=== PATIENT | female | born 1985 | race Caucasian/White ===

== ENCOUNTER 2018-06-06 08:00 | Inpatient (IN) | payer OTHER ==
[2018-06-07] MEDS ORDERED: Sodium Chloride 0.9% 10 ML SDV IV PRN (05:47)
[2018-06-07] MEDS ORDERED: Sodium Chloride 0.9% 2.5 ML Syringe FLUSH PRN (05:47)
[2018-06-07] MEDS ORDERED: Sodium Chloride 0.9% 10 ML Syringe FLUSH PRN (05:47)
[2018-06-07] MEDS ORDERED: Citric Acid/Sodium Citrate Solution 30 ML Cup PO ONE (05:47)
[2018-06-07] MEDS ORDERED: Oxytocin/0.9 % Sodium Chloride 30 UNIT/500 ML BAG IV SCH (06:00)
[2018-06-07] MEDS ORDERED: Lactated Ringers 1,000 ML IV SCH ×2 (06:00→09:30)
[2018-06-07] MEDS ORDERED: Sodium Chloride 0.9% 20 ML ONE ×2 (07:06→08:42)
[2018-06-07] MEDS ORDERED: Morphine PF 10 MG/10 ML SDV ONE (07:06)
[2018-06-07] MEDS ORDERED: Oxytocin/0.9 % Sodium Chloride 30 UNIT/500 ML BAG ONE (07:06)
[2018-06-07] MEDS ORDERED: ceFAZolin/Dextrose,Iso-Osmotic 2 GM/50 ML Duplex Bag IV ONE (07:06)
[2018-06-07] MEDS ORDERED: Phenylephrine/Normal Saline 100 MCG/ML 10 ML Syringe ONE ×2 (07:06→08:42)
[2018-06-07] MEDS ORDERED: ePHEDrine 50 MG/ML SDV ONE ×2 (07:06→08:42)
--- NOTE | 2018-06-07 07:15 | PCM.PREANE ---
Preanesthetic Assessment - Anesthesia/Transfusion/Family Hx Anesthesia History: Prior Anesthesia Without Reaction Family History of Anesthesia Reaction: No Transfusion History: No Prior Transfusion(s) Intubation History: Unknown - Review of Systems General: No Symptoms Pulmonary: No Symptoms Cardiovascular: No Symptoms Gastrointestinal: No Symptoms Neurological: No Symptoms Other: Reports: None - Physical Assessment Height: 1.63 m Weight: 97.522 kg ASA Class: 2 Mental Status: Alert & Oriented x3 Airway Class: Mallampati = 2 Dentition: Reports: Normal Dentition Thyro-Mental Finger Breadths: 3 Mouth Opening Finger Breadths: 3 ROM/Head Extension: Full Lungs: Clear to Auscultation, Normal Respiratory Effort Cardiovascular: Regular Rate, Regular Rhythm - Lab Values: Laboratory Last Values WBC 10.25 K/uL (4.0-11.0) 06/07/18 06:10 RBC 4.00 M/uL (4.30-5.90) L 06/07/18 06:10 Hgb 12.2 g/dL (12.0-16.0) 06/07/18 06:10 Hct 35.7 % (36.0-46.0) L 06/07/18 06:10 MCV 89.3 fL (80.0-98.0) 06/07/18 06:10 MCH 30.5 pg (27.0-32.0) 06/07/18 06:10 MCHC 34.2 g/dL (31.0-37.0) 06/07/18 06:10 RDW Std Deviation 43.8 fl (28.0-62.0) 06/07/18 06:10 RDW Coeff of William 13 % (11.0-15.0) 06/07/18 06:10 Plt Count 177 K/uL (150-400) 06/07/18 06:10 MPV 9.90 fL (7.40-12.00) 06/07/18 06:10 Nucleated RBC % 0.0 /100WBC 06/07/18 06:10 Nucleated RBCs # 0 K/uL 06/07/18 06:10 Blood Type O POSITIVE 06/07/18 06:03 Antibody Screen NEGATIVE 06/07/18 06:03 - Allergies Allergies/Adverse Reactions: Allergies Allergy/AdvReac Type Severity Reaction Status Date / Time No Known Allergies Allergy Verified 06/02/18 08:12 - Blood Blood Available: No - Anesthesia Plan Pre-Op Medication Ordered: None - Acknowledgements Anesthesia Type Planned: Spinal Pt an Appropriate Candidate for the Planned Anesthesia: Yes Alternatives and Risks of Anesthesia Discussed w Pt/Guardian: Yes Pt/Guardian Understands and Agrees with Anesthesia Plan: Yes PreAnesthesia Questionnaire HEENT History: Reports: None Cardiovascular History: Reports: None Respiratory History: Reports: None Gastrointestinal History: Reports: Other (See Below) Other Gastrointestinal History: difficulty swallowing at times Genitourinary History: Reports: None [employer]ATURE History: Reports: Musculoskeletal History: Reports: None Neurological History: Reports: None Psychiatric History: Reports: None Endocrine/Metabolic History: Reports: Obesity/BMI 30+ Hematologic History: Reports: None Immunologic History: Reports: None Oncologic (Cancer) History: Reports: None Dermatologic History: Reports: None - Infectious Disease History Infectious Disease History: Reports: Chicken Pox - Past Surgical History Head Surgeries/Procedures: Reports: None HEENT Surgical History: Reports: None Cardiovascular Surgical History: Reports: None Respiratory Surgical History: Reports: None GI Surgical History: Reports: None Female Surgical History: Reports: Section Neurological Surgical History: Reports: None Musculoskeletal Surgical History: Reports: None Oncologic Surgical History: Reports: None Dermatological Surgical History: Reports: None - SUBSTANCE USE Smoking Status *Q: Former Smoker Recreational Drug Use History: No - HOME MEDS Home Medications: Home Meds PNV95/Ferrous Fumarate/FA [ Vitamin Tablet] 1 tab PO DAILY 06/02/18 [ History] - CURRENT (IN HOUSE) MEDS Current Meds: Current Medications Lactated Ringer's (Ringers, Lactated) 1,000 mls @ 500 mls/hr IV BOLUS [facility] Oxytocin/Sodium Chloride (Oxytocin 30 Unit/500 Ml-Ns) 30 unit in 500 mls @ 250 mls/hr IV TITRATE [facility] Sodium Chloride (Saline Flush) 10 ml FLUSH ASDIRECTED PRN PRN Reason: Keep Vein Open Sodium Chloride (Saline Flush) 2.5 ml FLUSH ASDIRECTED PRN PRN Reason: Keep Vein Open Sodium Chloride (Normal Saline) 10 ml IV ASDIRECTED PRN PRN Reason: IV Use Discontinued Medications Cefazolin Sodium/Dextrose (Ancef) Confirm Administered Dose 2 gm IV .STK-MED ONE Stop: 06/07/18 07:07 Citric Acid/Sodium Citrate (Bicitra Solution) 30 ml PO ONETIME ONE Stop: 06/07/18 05:48 Ephedrine Sulfate (Ephedrine Sulfate) Confirm Administered Dose 50 mg .ROUTE .[facility]-MED ONE Stop: 06/07/18 07:07 Sodium Chloride (Normal Saline) Confirm Administered Dose 20 mls @ as directed .ROUTE .[facility]-MED ONE Stop: 06/07/18 07:07 Oxytocin/Sodium Chloride (Oxytocin 30 Unit/500 Ml-Ns) Confirm Administered Dose 30 unit in 500 mls @ as directed .ROUTE .[facility]-MED ONE Stop: 06/07/18 07:07 Morphine Sulfate (Duramorph Pf) Confirm Administered Dose 10 mg .ROUTE .[facility]-MED ONE Stop: 06/07/18 07:07 Phenylephrine HCl (Phenylephrine In Ns 100 Mcg/Ml) Confirm Administered Dose 1 mg .ROUTE .[facility]-MED ONE Stop: 06/07/18 07:07
[2018-06-07] MEDS ORDERED: ceFAZolin 2 GM in Premix Bag 1 BAG IV ONE (07:16)
[2018-06-07] MEDS ORDERED: fentaNYL 100 MCG/2 ML SDV ONE (08:36)
[2018-06-07] MEDS ORDERED: fentaNYL 100 MCG/2 ML SDV IVPUSH PRN (08:38)
[2018-06-07] MEDS ORDERED: HYDROmorphone 2 MG/ML Syringe IVPUSH ONE (08:38)
[2018-06-07] MEDS ORDERED: Ondansetron 4 MG/2 ML SDV IVPUSH ONE (08:38)
[2018-06-07] MEDS ORDERED: Promethazine 25 MG/ML SDV IM ONE (08:38)
[2018-06-07] MEDS ORDERED: Acetaminophen 325 MG Tab PO ONE (08:38)
[2018-06-07] MEDS ORDERED: Glycopyrrolate 0.2 MG/ML SDV ONE (08:42)
[2018-06-07] MEDS ORDERED: Octyl 2-Cyanoacrylate 1 Tube ONE (08:47)
[2018-06-07] MEDS ORDERED: Ketorolac 30 MG/ML SDV ONE (08:50)
--- NOTE | 2018-06-07 09:05 | PCM.OPNOTE ---
Addendum entered and electronically signed by Shyay Pedersen 06/07/18 11:53: Data insert by JOAQUÍN Trevino should read "Anesthesia Technique: Spinal" NOT "Anesthesia Technique: Epidural". -JOAQUÍN Trevino Original Note: <Shayy Pedersen - Last Filed: 06/07/18 09:02> - General Post-Op/Procedure Note Date of Surgery/Procedure: 06/07/18 Operative Procedure(s): repeat LTCS Findings: A live girl was delivered at 08:21 with scores of 9 and 10. Baby weighed 3620g. Mother is in good condition and was taken back to LDR room for recovery. Cord blood and venous and arterial blood gasses were sent. Pre Op Diagnosis: Post-Op Diagnosis: PPD0 Anesthesia Technique: Epidural Primary Surgeon: Shayy Panchal Secondary Surgeon: Shayy Pedersen (MS4) Anesthesia Provider: Blanca Saavedra Pathology: none. Fluid Replacement, Intraop: 2,000 Output, Urine Amount: 175 EBL in mLs: 500 Complications: none Condition: Good <Shayy Panchal - Last Filed: 06/07/18 14:49> - General Post-Op/Procedure Note Findings: Delivery intact placenta with 3 V cord Anesthesia Technique: Epidural (error, was spinal not epidural), Spinal Free Text/Narrative:: Intake & Output 06/06/18 06/07/18 06/07/18 22:59 06:59 14:59 Intake Total 2000 Output Total 175 Balance 1825 Dictation [id number]
[2018-06-07] MEDS ORDERED: Acetaminophen/oxyCODONE 325-5 MG Tab PO PRN (09:16)
[2018-06-07] MEDS ORDERED: Bisacodyl 10 MG Supp RECTAL PRN (09:16)
[2018-06-07] MEDS ORDERED: Ondansetron 4 MG/2 ML SDV IVPUSH PRN (09:16)
[2018-06-07] MEDS ORDERED: Lanolin 100% Cream 7 GM Tube TOP PRN (09:16)
--- NOTE | 2018-06-07 09:30 | PCM.POSTAN ---
POST ANESTHESIA ASSESSMENT - MENTAL STATUS Mental Status: Alert - RESPIRATORY Respiratory Status: Respiratory Rate WNL, Airway Patent, O2 Saturation Stable, Supplemental Oxygen - CARDIOVASCULAR CV Status: Pulse Rate WNL - GASTROINTESTINAL GI Status: No Symptoms - POST OP HYDRATION Hydration Status: Adequate & Stable
[2018-06-07] MEDS: diphenhydrAMINE 50 MG/ML SDV IVPUSH PRN ×3 (10:01→20:41)
[2018-06-07] MEDS: Simethicone 80 MG Tab.Chew PO SCH ×2 (11:57→18:08)
[2018-06-07] MEDS: Ketorolac 30 MG/ML SDV IVPUSH SCH ×2 (14:48→21:33)
--- NOTE | 2018-06-07 16:02 | OR ---
SURGEON: Shayy Panchal M.D. DATE OF PROCEDURE: 06/07/2018 PREOPERATIVE DIAGNOSES: 1. A 39 week intrauterine . 2. Previous section x2, desires repeat. POSTOPERATIVE DIAGNOSES: 1. A 39 week intrauterine . 2. Previous section x2, desires repeat. PROCEDURE: Repeat low-transverse section. ANESTHESIA: Epidural. ESTIMATED BLOOD LOSS: 500 mL. FLUIDS: 2000 mL crystalloid. COMPLICATIONS: None known. FINDINGS: A viable female, score 9 at 1 minute, 10 at 5 minutes. Weight of 3620 g. Delivery of intact placenta, 3-vessel cord. DISPOSITION: The patient to PACU with her . Status, stable condition. PROCEDURE IN DETAIL: Mariely is a 33-year-old at 39 weeks' gestational age who presents today for scheduled repeat delivery. Risks of procedure have been discussed and proper consent obtained. The patient was taken to the operating room where she underwent spinal anesthetic, was then placed in the dorsal supine position with leftward tilt. SCDs to lower extremities and Palomo to gravity. She was prepped and draped in the usual sterile fashion. Received prophylactic antibiotic. Time-out was performed. After being prepped and draped in usual sterile fashion, anesthesia was tested and found to be adequate. Previous Pfannenstiel scar was now excised. Subcutaneous tissue was incised down to the level of the rectus fascia. Fascia was incised in midline and lateralized bluntly and sharply. The superior aspect of fascia was tented upward, dissected sharply and bluntly from underlying muscles. Similar aspect was performed in inferior aspect of fascia. Rectus muscles in midline sharply and bluntly. Peritoneum was entered and lateralized bluntly. Uterine position and position palpated. Self- retaining retractor now gently placed. Uterovesical reflection was visualized. Bladder flap was created sharply and bluntly. There was a peritoneal window that was significant and I was able to just gently enter and perform hysterotomy at this point bluntly. Amniotomy was performed, clear fluid was returned. The infant's head was flexed and fundal pressure was applied. The infant's head was delivered followed by anterior shoulder, posterior shoulder, and remainder of the body without difficulty. The 's oropharynx and nares bulb suctioned, cord was clamped x2 and cut. Infant was handed off to attending nursing staff. Cord arterial, cord venous, cord blood sampling obtained. The placenta was now delivered. Uterine cavity was cleared of all clot and debris. Hysterotomy repaired using 0 Vicryl in continuous running locked fashion followed by re- imbricating layer. Any areas of serosal oozing were cauterized. Self-retaining retractor now gently removed after irrigating the posterior aspect of the uterus and colonic gutters, no defects or hematomas found be forming. The bladder blade was placed and hysterotomy was again inspected, found to be hemostatic. The bladder blade was removed. Rectus muscle and peritoneum were now reapproximated using inverted mattress suture technique. Anterior rectus muscle and posterior aspect of the fascia were closely inspected. Any areas of oozing were cauterized. The rectus fascia was now reapproximated using 0 Vicryl in continuous running fashion beginning laterally and meeting in the midline. Subcutaneous tissue was well irrigated, suction dried. Any areas of oozing were cauterized. The skin edges were reapproximated using 3-0 Vicryl on a Ta needle in subcuticular fashion followed by Dermabond. Uterus remained firm. Sponge, instrument, and needle counts correct x3. The patient tolerated the procedure well overall. She will go to PACU in stable condition, to nursery. DINA / KIRIT /[id number] JAMIA
[2018-06-07] MEDS: Docusate Sodium 100 MG Cap PO SCH (21:35)
[2018-06-08] MEDS: Simethicone 80 MG Tab.Chew PO SCH ×3 (00:52→19:04)
[2018-06-08] MEDS: Ketorolac 30 MG/ML SDV IVPUSH SCH ×2 (03:35→09:38)
--- NOTE | 2018-06-08 07:21 | PCM48HPAN ---
Post Anesthesia Note - EVALUATION WITHIN 48HRS OF ANESTHETIC Vital Signs in Normal Range: Yes Patient Participated in Evaluation: Yes Respiratory Function Stable: Yes Airway Patent: Yes Cardiovascular Function Stable: Yes Hydration Status Stable: Yes Pain Control Satisfactory: Yes Nausea and Vomiting Control Satisfactory: Yes Mental Status Recovered: Yes Resp Rate: 16
--- NOTE | 2018-06-08 07:52 | PCM.PNPP ---
<Shayy Pedersen - Last Filed: 06/08/18 07:47> - General Info Date of Service: 06/08/18 Admission Dx/Problem (Free Text): PP day 1 for LTCS Subjective Update: Mariely is a 33 year old who is PP day 1 for a LTCS. She is improving overall and denies pain. She is eating and ambulating without difficulty. Her urinary catheter was removed this morning but she has not attempted urinating since this. She reports that baby has done well latching and . Functional Status: Reports: Pain Controlled, Tolerating Diet, Ambulating, Urinating - Review of Systems General: Reports: No Symptoms Pulmonary: Reports: No Symptoms Cardiovascular: Reports: No Symptoms Gastrointestinal: Reports: No Symptoms Genitourinary: Reports: No Symptoms Musculoskeletal: Reports: No Symptoms Skin: Reports: No Symptoms Neurological: Reports: No Symptoms Psychiatric: Reports: No Symptoms - General Info Date of Service: 06/08/18 - Patient Data Vital Signs - Most Recent: Last Vital Signs Temp 98.2 F 06/08/18 04:05 Pulse 62 06/08/18 05:58 Resp 16 06/08/18 07:21 BP 113/57 L 06/08/18 04:05 Pulse Ox 94 L 06/08/18 05:58 Weight - Most Recent: 97.522 kg I&O - Last 24 Hours: Intake & Output 06/07/18 06/08/18 06/08/18 22:59 06:59 14:59 Output Total 1450 1630 Balance -1450 -1630 Lab Results - Last 24 Hours: Laboratory Results - last 24 hr 06/07/18 06/08/18 Range/Units 08:21 05:20 Hgb 10.5 L (12.0-16.0) g/dL Hct 31.1 L (36.0-46.0) % Cord ABG pH 7.307 (7.18-7.38) Cord ABG Base Excess -2 (-10--2) Cord VBG pH 7.353 (7.25-7.45) Cord VBG Base Excess -3 (-10--2) Med Orders - Current: Current Medications Bisacodyl (Dulcolax) 10 mg RECTAL ONETIME PRN PRN Reason: Constipation Diphenhydramine HCl (Benadryl) 25 mg IVPUSH Q6H PRN PRN Reason: Itching or Nausea Last Admin: 06/07/18 20:41 Dose: 25 mg Docusate Sodium (Colace) 100 mg PO BID [facility] Last Admin: 06/07/18 21:35 Dose: 100 mg Emollient Ointment (Lansinoh Hpa) 0 gm TOP ASDIRECTED PRN PRN Reason: Sore Nipples Fentanyl (Sublimaze) 50 mcg IVPUSH Q5M PRN PRN Reason: Pain (severe 7-10) Stop: 06/08/18 08:38 Lactated Ringer's (Ringers, Lactated) 1,000 mls @ 500 mls/hr IV BOLUS [facility] Last Admin: 06/07/18 07:31 Dose: 500 mls/hr Oxytocin/Sodium Chloride (Oxytocin 30 Unit/500 Ml-Ns) 30 unit in 500 mls @ 250 mls/hr IV TITRATE [facility] Lactated Ringer's (Ringers, Lactated) 1,000 mls @ 125 mls/hr IV ASDIRECTED [facility] Last Admin: 06/07/18 10:05 Dose: 125 mls/hr Ibuprofen (Motrin) 800 mg PO Q8H PRN PRN Reason: mild pain or fever Ketorolac Tromethamine (Toradol) 30 mg IVPUSH Q6H [facility] Stop: 06/08/18 09:31 Last Admin: 06/08/18 03:35 Dose: 30 mg Ondansetron HCl (Zofran) 4 mg IVPUSH Q4H PRN PRN Reason: Nausea/Vomiting Last Admin: 06/07/18 12:51 Dose: 4 mg Oxycodone/Acetaminophen (Percocet 325-5 Mg) 2 tab PO ONETIME PRN PRN Reason: Pain (moderate 4-6) Oxycodone/Acetaminophen (Percocet 325-5 Mg) 1 tab PO Q4H PRN PRN Reason: Pain (moderate 4-6) Oxycodone/Acetaminophen (Percocet 325-5 Mg) 2 tab PO Q4H PRN PRN Reason: Pain (moderate 4-6) Simethicone (Simethicone) 160 mg PO QID [facility] Last Admin: 06/08/18 00:52 Dose: 160 mg Sodium Chloride (Saline Flush) 10 ml FLUSH ASDIRECTED PRN PRN Reason: Keep Vein Open Sodium Chloride (Saline Flush) 2.5 ml FLUSH ASDIRECTED PRN PRN Reason: Keep Vein Open Sodium Chloride (Normal Saline) 10 ml IV ASDIRECTED PRN PRN Reason: IV Use Discontinued Medications Acetaminophen (Tylenol) 650 mg PO NOW ONE Stop: 06/07/18 08:39 Cefazolin Sodium/Dextrose (Ancef) Confirm Administered Dose 2 gm IV .STK-MED ONE Stop: 06/07/18 07:07 Citric Acid/Sodium Citrate (Bicitra Solution) 30 ml PO ONETIME ONE Stop: 06/07/18 05:48 Last Admin: 06/07/18 07:35 Dose: 30 ml Ephedrine Sulfate (Ephedrine Sulfate) Confirm Administered Dose 50 mg .ROUTE .STK-MED ONE Stop: 06/07/18 07:07 Ephedrine Sulfate (Ephedrine Sulfate) Confirm Administered Dose 50 mg .ROUTE .STK-MED ONE Stop: 06/07/18 08:43 Fentanyl (Sublimaze) Confirm Administered Dose 100 mcg .ROUTE .STK-MED ONE Stop: 06/07/18 08:37 Glycopyrrolate (Robinul) Confirm Administered Dose 0.2 mg .ROUTE .STK-MED ONE Stop: 06/07/18 08:43 Hydromorphone HCl (Dilaudid) 2 mg IVPUSH ONETIME ONE Stop: 06/07/18 08:39 Sodium Chloride (Normal Saline) Confirm Administered Dose 20 mls @ as directed .ROUTE .STK-MED ONE Stop: 06/07/18 07:07 Oxytocin/Sodium Chloride (Oxytocin 30 Unit/500 Ml-Ns) Confirm Administered Dose 30 unit in 500 mls @ as directed .ROUTE .STK-MED ONE Stop: 06/07/18 07:07 Cefazolin Sodium/Dextrose 2 gm (/ Premix) 50 mls @ 100 mls/hr IV ONETIME ONE Stop: 06/07/18 07:45 Sodium Chloride (Normal Saline) Confirm Administered Dose 20 mls @ as directed .ROUTE .STK-MED ONE Stop: 06/07/18 08:43 Ketorolac Tromethamine (Toradol) Confirm Administered Dose 30 mg .ROUTE .STK- MED ONE Stop: 06/07/18 08:51 Morphine Sulfate (Duramorph Pf) Confirm Administered Dose 10 mg .ROUTE .STK-MED ONE Stop: 06/07/18 07:07 Octyl Cyanoacrylate (Dermabond Advance) Confirm Administered Dose 1 applic .ROUTE .STK-MED ONE Stop: 06/07/18 08:48 Ondansetron HCl (Zofran) 4 mg IVPUSH ONETIME ONE Stop: 06/07/18 08:39 Phenylephrine HCl (Phenylephrine In Ns 100 Mcg/Ml) Confirm Administered Dose 1 mg .ROUTE .STK-MED ONE Stop: 06/07/18 07:07 Phenylephrine HCl (Phenylephrine In Ns 100 Mcg/Ml) Confirm Administered Dose 1 mg .ROUTE .STK-MED ONE Stop: 06/07/18 08:43 Promethazine HCl (Phenergan) 12.5 mg IM ONETIME ONE Stop: 06/07/18 08:39 - Interaction Disposition, : in Room with Family Infant Interaction: Holding Feeding: Breastfed Infant; Nursed Well Support Person: - Recovery Exam Fundal Tone: Firm Fundal Level: 1 Fingerbreadths Below Umbilicus Fundal Placement: Midline Lochia Amount: Scant Lochia Color: Rubra/Red Perineum Description: Intact, Minimal Bruising/Swelling Episiotomy/Laceration: None Urinary Elimination: Other (see below) (urinary catheter removed this AM, has not urinated yet) - Exam General: Alert, Oriented HEENT: Pupils Equal, Pupils Reactive, EOMI Neck: Supple Lungs: Clear to Auscultation, Normal Respiratory Effort Cardiovascular: Regular Rate, Regular Rhythm GI/Abdominal Exam: Normal Bowel Sounds, Soft, Non-Tender, No Distention Extremities: Normal Inspection, Non-Tender, Normal Capillary Refill, Pedal Edema (1+ bilaterally to ankles and feet, stable since prior to delivery) Skin: Warm, Dry, Intact Wound/Incisions: Healing Well, Other (Dressing removed and had area of newer blood (bright red); wound dry and not bleeding at this time) Neurological: No New Focal Deficit Psy/Mental Status: Alert, Normal Affect, Normal Mood - Problem List & Annotations (1) delivery delivered SNOMED Code(s): 246124744 Code(s): O82 - ENCOUNTER FOR DELIVERY WITHOUT INDICATION Status: Acute Current Visit: Yes - Problem List Review Problem List Initiated/Reviewed/Updated: Yes - Assessment Assessment:: Mariely is PP day 1 for LTCS. She is improving overall and denies pain. She is eating and ambulating well, but has not yet urinated. Baby is resting on mother' s chest and patient reports having breastfed well. - Plan Plan:: -- continue routine cares. Monitor for patient to urinate as catheter was removed this AM. -- continue to provide support as needed Pain-- stay on top of pain medications Wound care-- if wound bleeds with dressing removed, apply local dressing to area of bleeding <Shayy Panchal - Last Filed: 06/08/18 08:24> - Patient Data Vital Signs - Most Recent: Last Vital Signs Temp 36.8 C 06/08/18 04:05 Pulse 62 06/08/18 05:58 Resp 16 06/08/18 07:21 BP 113/57 L 06/08/18 04:05 Pulse Ox 94 L 06/08/18 05:58 I&O - Last 24 Hours: Intake & Output 06/07/18 06/08/18 06/08/18 22:59 06:59 14:59 Output Total 1450 1630 Balance -1450 -1630 Lab Results - Last 24 Hours: Laboratory Results - last 24 hr 06/07/18 06/08/18 Range/Units 08:21 05:20 Hgb 10.5 L (12.0-16.0) g/dL Hct 31.1 L (36.0-46.0) % Cord ABG pH 7.307 (7.18-7.38) Cord ABG Base Excess -2 (-10--2) Cord VBG pH 7.353 (7.25-7.45) Cord VBG Base Excess -3 (-10--2) Med Orders - Current: Current Medications Bisacodyl (Dulcolax) 10 mg RECTAL ONETIME PRN PRN Reason: Constipation Diphenhydramine HCl (Benadryl) 25 mg IVPUSH Q6H PRN PRN Reason: Itching or Nausea Last Admin: 06/07/18 20:41 Dose: 25 mg Docusate Sodium (Colace) 100 mg PO BID [facility] Last Admin: 06/07/18 21:35 Dose: 100 mg Emollient Ointment (Lansinoh Hpa) 0 gm TOP ASDIRECTED PRN PRN Reason: Sore Nipples Fentanyl (Sublimaze) 50 mcg IVPUSH Q5M PRN PRN Reason: Pain (severe 7-10) Stop: 06/08/18 08:38 Lactated Ringer's (Ringers, Lactated) 1,000 mls @ 500 mls/hr IV BOLUS [facility] Last Admin: 06/07/18 07:31 Dose: 500 mls/hr Oxytocin/Sodium Chloride (Oxytocin 30 Unit/500 Ml-Ns) 30 unit in 500 mls @ 250 mls/hr IV TITRATE [facility] Lactated Ringer's (Ringers, Lactated) 1,000 mls @ 125 mls/hr IV ASDIRECTED [facility] Last Admin: 06/07/18 10:05 Dose: 125 mls/hr Ibuprofen (Motrin) 800 mg PO Q8H PRN PRN Reason: mild pain or fever Ketorolac Tromethamine (Toradol) 30 mg IVPUSH Q6H [facility] Stop: 06/08/18 09:31 Last Admin: 06/08/18 03:35 Dose: 30 mg Ondansetron HCl (Zofran) 4 mg IVPUSH Q4H PRN PRN Reason: Nausea/Vomiting Last Admin: 06/07/18 12:51 Dose: 4 mg Oxycodone/Acetaminophen (Percocet 325-5 Mg) 2 tab PO ONETIME PRN PRN Reason: Pain (moderate 4-6) Oxycodone/Acetaminophen (Percocet 325-5 Mg) 1 tab PO Q4H PRN PRN Reason: Pain (moderate 4-6) Oxycodone/Acetaminophen (Percocet 325-5 Mg) 2 tab PO Q4H PRN PRN Reason: Pain (moderate 4-6) Simethicone (Simethicone) 160 mg PO QID [facility] Last Admin: 06/08/18 00:52 Dose: 160 mg Sodium Chloride (Saline Flush) 10 ml FLUSH ASDIRECTED PRN PRN Reason: Keep Vein Open Sodium Chloride (Saline Flush) 2.5 ml FLUSH ASDIRECTED PRN PRN Reason: Keep Vein Open Sodium Chloride (Normal Saline) 10 ml IV ASDIRECTED PRN PRN Reason: IV Use Discontinued Medications Acetaminophen (Tylenol) 650 mg PO NOW ONE Stop: 06/07/18 08:39 Cefazolin Sodium/Dextrose (Ancef) Confirm Administered Dose 2 gm IV .STK-MED ONE Stop: 06/07/18 07:07 Citric Acid/Sodium Citrate (Bicitra Solution) 30 ml PO ONETIME ONE Stop: 06/07/18 05:48 Last Admin: 06/07/18 07:35 Dose: 30 ml Ephedrine Sulfate (Ephedrine Sulfate) Confirm Administered Dose 50 mg .ROUTE .ST-MED ONE Stop: 06/07/18 07:07 Ephedrine Sulfate (Ephedrine Sulfate) Confirm Administered Dose 50 mg .ROUTE .ST-MED ONE Stop: 06/07/18 08:43 Fentanyl (Sublimaze) Confirm Administered Dose 100 mcg .ROUTE .ST-MED ONE Stop: 06/07/18 08:37 Glycopyrrolate (Robinul) Confirm Administered Dose 0.2 mg .ROUTE .[facility]-MED ONE Stop: 06/07/18 08:43 Hydromorphone HCl (Dilaudid) 2 mg IVPUSH ONETIME ONE Stop: 06/07/18 08:39 Sodium Chloride (Normal Saline) Confirm Administered Dose 20 mls @ as directed .ROUTE .[facility]-MED ONE Stop: 06/07/18 07:07 Oxytocin/Sodium Chloride (Oxytocin 30 Unit/500 Ml-Ns) Confirm Administered Dose 30 unit in 500 mls @ as directed .ROUTE .[facility]-MED ONE Stop: 06/07/18 07:07 Cefazolin Sodium/Dextrose 2 gm (/ Premix) 50 mls @ 100 mls/hr IV ONETIME ONE Stop: 06/07/18 07:45 Sodium Chloride (Normal Saline) Confirm Administered Dose 20 mls @ as directed .ROUTE .ST-MED ONE Stop: 06/07/18 08:43 Ketorolac Tromethamine (Toradol) Confirm Administered Dose 30 mg .ROUTE .ST- MED ONE Stop: 06/07/18 08:51 Morphine Sulfate (Duramorph Pf) Confirm Administered Dose 10 mg .ROUTE .ST-MED ONE Stop: 06/07/18 07:07 Octyl Cyanoacrylate (Dermabond Advance) Confirm Administered Dose 1 applic .ROUTE .ST-MED ONE Stop: 06/07/18 08:48 Ondansetron HCl (Zofran) 4 mg IVPUSH ONETIME ONE Stop: 06/07/18 08:39 Phenylephrine HCl (Phenylephrine In Ns 100 Mcg/Ml) Confirm Administered Dose 1 mg .ROUTE .STK-MED ONE Stop: 06/07/18 07:07 Phenylephrine HCl (Phenylephrine In Ns 100 Mcg/Ml) Confirm Administered Dose 1 mg .ROUTE .STK-MED ONE Stop: 06/07/18 08:43 Promethazine HCl (Phenergan) 12.5 mg IM ONETIME ONE Stop: 06/07/18 08:39 - My Orders Last 24 Hours: My Active Orders 06/07/18 09:16 Patient Status [ADT] Routine Ambulate [RC] PER UNIT ROUTINE Communication Order [RC] PER UNIT ROUTINE Communication Order [RC] Per Unit Routine May Shower [RC] ASDIRECTED Notify Provider Intake and Out [RC] ASDIRECTED Notify Provider Vital Signs [RC] ASDIRECTED RT Incentive Spirometry [RC] Q2HWA Vital Signs [RC] Q1H Acetaminophen/oxyCODONE [Percocet 325-5 MG] 1 tab PO Q4H PRN Acetaminophen/oxyCODONE [Percocet 325-5 MG] 2 tab PO Q4H PRN Bisacodyl [Dulcolax] 10 mg RECTAL ONETIME PRN Lanolin [Lansinoh HPA] See Dose Instructions TOP ASDIRECTED PRN Ondansetron [Zofran] 4 mg IVPUSH Q4H PRN diphenhydrAMINE [Benadryl] 25 mg IVPUSH Q6H PRN Abdominal Binder [OM.PC] Urgent Assess Lochia [WOMSER] Per Unit Routine Assess Uterine Involution [WOMSER] Per Unit Routine Breast Pump [WOMSER] Per Unit Routine Heat Therapy [OM.PC] Routine Ice Therapy [OM.PC] Routine Peripheral IV Discontinue [OM.PC] Routine Sequential Compression Device [OM.PC] Per Unit Routine 06/07/18 09:17 Antiembolic Devices [RC] PER UNIT ROUTINE 06/07/18 09:30 Ketorolac [Toradol] 30 mg IVPUSH Q6H Lactated Ringers [Ringers, Lactated] 1,000 ml IV ASDIRECTED 06/07/18 12:00 Simethicone 160 mg PO QID 06/07/18 21:00 Docusate Sodium [Colace] 100 mg PO BID 06/07/18 Lunch Regular Diet [DIET] 06/08/18 21:00 Ibuprofen [Motrin] 800 mg PO Q8H PRN - Plan Plan:: Patient seen and examined--agree with above
[2018-06-08] MEDS: Docusate Sodium 100 MG Cap PO SCH ×2 (09:38→21:08)
[2018-06-08] MEDS ORDERED: Ibuprofen 800 MG Tab ONE (15:49)
[2018-06-08] MEDS: Ibuprofen 800 MG Tab PO PRN (15:51)
[2018-06-08] MEDS: Acetaminophen/oxyCODONE 325-5 MG Tab PO PRN ×2 (17:14→21:08)
[2018-06-09] MEDS: Ibuprofen 800 MG Tab PO PRN ×2 (00:01→07:46)
[2018-06-09] MEDS ORDERED: Simethicone 80 MG Tab.Chew ONE (00:05)
[2018-06-09] MEDS: Simethicone 80 MG Tab.Chew PO SCH ×2 (00:07→08:05)
[2018-06-09] MEDS: Acetaminophen/oxyCODONE 325-5 MG Tab PO PRN ×2 (02:25→09:21)
--- NOTE | 2018-06-09 07:49 | PCM.PNPP ---
<Shayy Pedersen - Last Filed: 06/09/18 07:43> - General Info Date of Service: 06/09/18 Admission Dx/Problem (Free Text): Repeat LTCS Subjective Update: Mariely is a 33 year old who is PP day 2 for LTCS. She notes that she has no pain with use of her pain medications. She is improving in function and feels well to be discharged to home today. Functional Status: Reports: Pain Controlled, Tolerating Diet, Ambulating, Urinating - Review of Systems General: Reports: No Symptoms Pulmonary: Reports: No Symptoms Cardiovascular: Reports: No Symptoms Gastrointestinal: Reports: No Symptoms Genitourinary: Reports: No Symptoms Musculoskeletal: Reports: No Symptoms Skin: Reports: No Symptoms Neurological: Reports: No Symptoms Psychiatric: Reports: No Symptoms - General Info Date of Service: 06/09/18 - Patient Data Vital Signs - Most Recent: Last Vital Signs Temp 98.3 F 06/09/18 04:25 Pulse 70 06/09/18 04:25 Resp 15 06/09/18 04:25 BP 106/70 06/09/18 04:25 Pulse Ox 97 06/09/18 04:25 Weight - Most Recent: 97.522 kg Med Orders - Current: Current Medications Bisacodyl (Dulcolax) 10 mg RECTAL ONETIME PRN PRN Reason: Constipation Diphenhydramine HCl (Benadryl) 25 mg IVPUSH Q6H PRN PRN Reason: Itching or Nausea Last Admin: 06/07/18 20:41 Dose: 25 mg Docusate Sodium (Colace) 100 mg PO BID [facility] Last Admin: 06/08/18 21:08 Dose: 100 mg Emollient Ointment (Lansinoh Hpa) 0 gm TOP ASDIRECTED PRN PRN Reason: Sore Nipples Lactated Ringer's (Ringers, Lactated) 1,000 mls @ 500 mls/hr IV BOLUS [facility] Last Admin: 06/07/18 07:31 Dose: 500 mls/hr Oxytocin/Sodium Chloride (Oxytocin 30 Unit/500 Ml-Ns) 30 unit in 500 mls @ 250 mls/hr IV TITRATE [facility] Lactated Ringer's (Ringers, Lactated) 1,000 mls @ 125 mls/hr IV ASDIRECTED [facility] Last Admin: 06/07/18 10:05 Dose: 125 mls/hr Ibuprofen (Motrin) 800 mg PO Q8H PRN PRN Reason: mild pain or fever Last Admin: 06/09/18 00:01 Dose: 800 mg Ondansetron HCl (Zofran) 4 mg IVPUSH Q4H PRN PRN Reason: Nausea/Vomiting Last Admin: 06/07/18 12:51 Dose: 4 mg Oxycodone/Acetaminophen (Percocet 325-5 Mg) 2 tab PO ONETIME PRN PRN Reason: Pain (moderate 4-6) Last Admin: 06/09/18 02:25 Dose: 2 tab Oxycodone/Acetaminophen (Percocet 325-5 Mg) 1 tab PO Q4H PRN PRN Reason: Pain (moderate 4-6) Last Admin: 06/08/18 12:48 Dose: 1 tab Oxycodone/Acetaminophen (Percocet 325-5 Mg) 2 tab PO Q4H PRN PRN Reason: Pain (moderate 4-6) Last Admin: 06/08/18 17:14 Dose: 2 tab Simethicone (Simethicone) 160 mg PO QID [facility] Last Admin: 06/09/18 00:07 Dose: 160 mg Sodium Chloride (Saline Flush) 10 ml FLUSH ASDIRECTED PRN PRN Reason: Keep Vein Open Sodium Chloride (Saline Flush) 2.5 ml FLUSH ASDIRECTED PRN PRN Reason: Keep Vein Open Sodium Chloride (Normal Saline) 10 ml IV ASDIRECTED PRN PRN Reason: IV Use Discontinued Medications Acetaminophen (Tylenol) 650 mg PO NOW ONE Stop: 06/07/18 08:39 Cefazolin Sodium/Dextrose (Ancef) Confirm Administered Dose 2 gm IV .STK-MED ONE Stop: 06/07/18 07:07 Citric Acid/Sodium Citrate (Bicitra Solution) 30 ml PO ONETIME ONE Stop: 06/07/18 05:48 Last Admin: 06/07/18 07:35 Dose: 30 ml Ephedrine Sulfate (Ephedrine Sulfate) Confirm Administered Dose 50 mg .ROUTE .STK-MED ONE Stop: 06/07/18 07:07 Ephedrine Sulfate (Ephedrine Sulfate) Confirm Administered Dose 50 mg .ROUTE .STK-MED ONE Stop: 06/07/18 08:43 Fentanyl (Sublimaze) Confirm Administered Dose 100 mcg .ROUTE .STK-MED ONE Stop: 06/07/18 08:37 Fentanyl (Sublimaze) 50 mcg IVPUSH Q5M PRN PRN Reason: Pain (severe 7-10) Stop: 06/08/18 08:38 Glycopyrrolate (Robinul) Confirm Administered Dose 0.2 mg .ROUTE .STK-MED ONE Stop: 06/07/18 08:43 Hydromorphone HCl (Dilaudid) 2 mg IVPUSH ONETIME ONE Stop: 06/07/18 08:39 Sodium Chloride (Normal Saline) Confirm Administered Dose 20 mls @ as directed .ROUTE .STK-MED ONE Stop: 06/07/18 07:07 Oxytocin/Sodium Chloride (Oxytocin 30 Unit/500 Ml-Ns) Confirm Administered Dose 30 unit in 500 mls @ as directed .ROUTE .STK-MED ONE Stop: 06/07/18 07:07 Cefazolin Sodium/Dextrose 2 gm (/ Premix) 50 mls @ 100 mls/hr IV ONETIME ONE Stop: 06/07/18 07:45 Sodium Chloride (Normal Saline) Confirm Administered Dose 20 mls @ as directed .ROUTE .STK-MED ONE Stop: 06/07/18 08:43 Ibuprofen (Motrin) Confirm Administered Dose 800 mg .ROUTE .STK-MED ONE Stop: 06/08/18 15:50 Last Admin: 06/08/18 15:58 Dose: Not Given Ketorolac Tromethamine (Toradol) Confirm Administered Dose 30 mg .ROUTE .STK- MED ONE Stop: 06/07/18 08:51 Ketorolac Tromethamine (Toradol) 30 mg IVPUSH Q6H [facility] Stop: 06/08/18 09:31 Last Admin: 06/08/18 09:38 Dose: 30 mg Morphine Sulfate (Duramorph Pf) Confirm Administered Dose 10 mg .ROUTE .STK-MED ONE Stop: 06/07/18 07:07 Octyl Cyanoacrylate (Dermabond Advance) Confirm Administered Dose 1 applic .ROUTE .STK-MED ONE Stop: 06/07/18 08:48 Ondansetron HCl (Zofran) 4 mg IVPUSH ONETIME ONE Stop: 06/07/18 08:39 Phenylephrine HCl (Phenylephrine In Ns 100 Mcg/Ml) Confirm Administered Dose 1 mg .ROUTE .STK-MED ONE Stop: 06/07/18 07:07 Phenylephrine HCl (Phenylephrine In Ns 100 Mcg/Ml) Confirm Administered Dose 1 mg .ROUTE .STK-MED ONE Stop: 06/07/18 08:43 Promethazine HCl (Phenergan) 12.5 mg IM ONETIME ONE Stop: 06/07/18 08:39 Simethicone (Simethicone) Confirm Administered Dose 80 mg .ROUTE .STK-MED ONE Stop: 06/09/18 00:06 - Infant Interaction Disposition, : in Room with Family Interaction: Other (see below) (FOB holding ) Infant Feeding: Breastfed Infant; Nursed Well Support Person: - Recovery Exam Fundal Tone: Firm Fundal Level: 1 Fingerbreadths Below Umbilicus Fundal Placement: Midline Lochia Amount: Scant Lochia Color: Rubra/Red Perineum Description: Intact, Minimal Bruising/Swelling Episiotomy/Laceration: Approximated Bladder Status: Voiding Urinary Elimination: Voided - Exam General: Alert, Oriented HEENT: Pupils Equal, Pupils Reactive, EOMI Neck: Supple Lungs: Clear to Auscultation, Normal Respiratory Effort Cardiovascular: Regular Rate, Regular Rhythm GI/Abdominal Exam: Normal Bowel Sounds, Soft, Non-Tender, No Organomegaly, No Distention Extremities: Normal Inspection, Normal Range of Motion Skin: Warm, Dry, Intact Wound/Incisions: Healing Well (dry, nonerythematous) Neurological: No New Focal Deficit Psy/Mental Status: Alert, Normal Affect, Normal Mood - Problem List & Annotations (1) delivery delivered SNOMED Code(s): 399769454 Code(s): O82 - ENCOUNTER FOR DELIVERY WITHOUT INDICATION Status: Acute Current Visit: Yes - Problem List Review Problem List Initiated/Reviewed/Updated: Yes - Assessment Assessment:: Mariely is PP day 2 for LTCS. She is improving overall and denies pain. She is eating, ambulating, and urinating well. She denies bowel movement, but has passed gas. Her vital signs and labs are reassuring. Patient feels comfortable being discharged to home today. <Shayy Panchal - Last Filed: 06/09/18 10:17> - Patient Data Vital Signs - Most Recent: Last Vital Signs Temp 36.8 C 06/09/18 07:45 Pulse 62 06/09/18 07:45 Resp 18 06/09/18 07:45 BP 138/68 06/09/18 07:45 Pulse Ox 95 06/09/18 07:45 Med Orders - Current: Current Medications Bisacodyl (Dulcolax) 10 mg RECTAL ONETIME PRN PRN Reason: Constipation Diphenhydramine HCl (Benadryl) 25 mg IVPUSH Q6H PRN PRN Reason: Itching or Nausea Last Admin: 06/07/18 20:41 Dose: 25 mg Docusate Sodium (Colace) 100 mg PO BID [facility] Last Admin: 06/08/18 21:08 Dose: 100 mg Emollient Ointment (Lansinoh Hpa) 0 gm TOP ASDIRECTED PRN PRN Reason: Sore Nipples Lactated Ringer's (Ringers, Lactated) 1,000 mls @ 500 mls/hr IV BOLUS [facility] Last Admin: 06/07/18 07:31 Dose: 500 mls/hr Oxytocin/Sodium Chloride (Oxytocin 30 Unit/500 Ml-Ns) 30 unit in 500 mls @ 250 mls/hr IV TITRATE [facility] Lactated Ringer's (Ringers, Lactated) 1,000 mls @ 125 mls/hr IV ASDIRECTED [facility] Last Admin: 06/07/18 10:05 Dose: 125 mls/hr Ibuprofen (Motrin) 800 mg PO Q8H PRN PRN Reason: mild pain or fever Last Admin: 06/09/18 07:46 Dose: 800 mg Ondansetron HCl (Zofran) 4 mg IVPUSH Q4H PRN PRN Reason: Nausea/Vomiting Last Admin: 06/07/18 12:51 Dose: 4 mg Oxycodone/Acetaminophen (Percocet 325-5 Mg) 2 tab PO ONETIME PRN PRN Reason: Pain (moderate 4-6) Last Admin: 06/09/18 02:25 Dose: 2 tab Oxycodone/Acetaminophen (Percocet 325-5 Mg) 1 tab PO Q4H PRN PRN Reason: Pain (moderate 4-6) Last Admin: 06/08/18 12:48 Dose: 1 tab Oxycodone/Acetaminophen (Percocet 325-5 Mg) 2 tab PO Q4H PRN PRN Reason: Pain (moderate 4-6) Last Admin: 06/09/18 09:21 Dose: 2 tab Simethicone (Simethicone) 160 mg PO QID [facility] Last Admin: 06/09/18 08:05 Dose: Not Given Sodium Chloride (Saline Flush) 10 ml FLUSH ASDIRECTED PRN PRN Reason: Keep Vein Open Sodium Chloride (Saline Flush) 2.5 ml FLUSH ASDIRECTED PRN PRN Reason: Keep Vein Open Sodium Chloride (Normal Saline) 10 ml IV ASDIRECTED PRN PRN Reason: IV Use Discontinued Medications Acetaminophen (Tylenol) 650 mg PO NOW ONE Stop: 06/07/18 08:39 Cefazolin Sodium/Dextrose (Ancef) Confirm Administered Dose 2 gm IV .STK-MED ONE Stop: 06/07/18 07:07 Citric Acid/Sodium Citrate (Bicitra Solution) 30 ml PO ONETIME ONE Stop: 06/07/18 05:48 Last Admin: 06/07/18 07:35 Dose: 30 ml Ephedrine Sulfate (Ephedrine Sulfate) Confirm Administered Dose 50 mg .ROUTE .STK-MED ONE Stop: 06/07/18 07:07 Ephedrine Sulfate (Ephedrine Sulfate) Confirm Administered Dose 50 mg .ROUTE .STK-MED ONE Stop: 06/07/18 08:43 Fentanyl (Sublimaze) Confirm Administered Dose 100 mcg .ROUTE .STK-MED ONE Stop: 06/07/18 08:37 Fentanyl (Sublimaze) 50 mcg IVPUSH Q5M PRN PRN Reason: Pain (severe 7-10) Stop: 06/08/18 08:38 Glycopyrrolate (Robinul) Confirm Administered Dose 0.2 mg .ROUTE .STK-MED ONE Stop: 06/07/18 08:43 Hydromorphone HCl (Dilaudid) 2 mg IVPUSH ONETIME ONE Stop: 06/07/18 08:39 Sodium Chloride (Normal Saline) Confirm Administered Dose 20 mls @ as directed .ROUTE .STK-MED ONE Stop: 06/07/18 07:07 Oxytocin/Sodium Chloride (Oxytocin 30 Unit/500 Ml-Ns) Confirm Administered Dose 30 unit in 500 mls @ as directed .ROUTE .STK-MED ONE Stop: 06/07/18 07:07 Cefazolin Sodium/Dextrose 2 gm (/ Premix) 50 mls @ 100 mls/hr IV ONETIME ONE Stop: 06/07/18 07:45 Sodium Chloride (Normal Saline) Confirm Administered Dose 20 mls @ as directed .ROUTE .STK-MED ONE Stop: 06/07/18 08:43 Ibuprofen (Motrin) Confirm Administered Dose 800 mg .ROUTE .STK-MED ONE Stop: 06/08/18 15:50 Last Admin: 06/08/18 15:58 Dose: Not Given Ketorolac Tromethamine (Toradol) Confirm Administered Dose 30 mg .ROUTE .STK- MED ONE Stop: 06/07/18 08:51 Ketorolac Tromethamine (Toradol) 30 mg IVPUSH Q6H [facility] Stop: 06/08/18 09:31 Last Admin: 06/08/18 09:38 Dose: 30 mg Morphine Sulfate (Duramorph Pf) Confirm Administered Dose 10 mg .ROUTE .STK-MED ONE Stop: 06/07/18 07:07 Octyl Cyanoacrylate (Dermabond Advance) Confirm Administered Dose 1 applic .ROUTE .STK-MED ONE Stop: 06/07/18 08:48 Ondansetron HCl (Zofran) 4 mg IVPUSH ONETIME ONE Stop: 06/07/18 08:39 Phenylephrine HCl (Phenylephrine In Ns 100 Mcg/Ml) Confirm Administered Dose 1 mg .ROUTE .STK-MED ONE Stop: 06/07/18 07:07 Phenylephrine HCl (Phenylephrine In Ns 100 Mcg/Ml) Confirm Administered Dose 1 mg .ROUTE .STK-MED ONE Stop: 06/07/18 08:43 Promethazine HCl (Phenergan) 12.5 mg IM ONETIME ONE Stop: 06/07/18 08:39 Simethicone (Simethicone) Confirm Administered Dose 80 mg .ROUTE .STK-MED ONE Stop: 06/09/18 00:06 - My Orders Last 24 Hours: My Active Orders 06/08/18 21:00 Ibuprofen [Motrin] 800 mg PO Q8H PRN - Plan Plan:: Patient seen and examined, agree with above. Follow up at [facility] 2 and 6 weeks. Discharge instructions reviewed. Discharge to home.
== END 2018-06-09 11:50 | disposition home or self-care (01) | DRG 787 ==
LOC: MW.OB 06-07 05:31
PROVIDERS: ADMIT Obstetrics & Gynecology; ATTEND Obstetrics & Gynecology
PROC: 6A550ZT Pheresis of Cord Blood Stem Cells, Single (ICD-10-PCS; principal; 2018-06-07)
PROC: 10D00Z1 Extraction of Products of Conception, Low, Open Approach (ICD-10-PCS; principal; 2018-06-07)
DX: O34.211 Maternal care for low transverse scar from previous cesarean delivery (principal); O98.32 Other infections with a predominantly sexual mode of transmission complicating childbirth; N85.8 Other specified noninflammatory disorders of uterus; Z3A.39 39 weeks gestation of pregnancy; Z37.0 Single live birth; A60.00 Herpesviral infection of urogenital system, unspecified; O99.824 Streptococcus B carrier state complicating childbirth; Z87.891 Personal history of nicotine dependence; O99.214 Obesity complicating childbirth; E66.9 Obesity, unspecified
CPT/HCPCS: 36415; 59025; 82803; 85014; 85018; 85027; 86850; 86900; 86901; A9270-GY; J0690; J1200; J1885; J2270; J2370; J2405; J2590; J3010; J3490; J7120

== ENCOUNTER 2022-08-15 08:28 | Emergency (ER) | payer OTHER | END 2022-08-15 10:11 | disposition home or self-care (01) | LOC: MW.ED 08:28 | DX: J02.9 Acute pharyngitis, unspecified (principal); H10.9 Unspecified conjunctivitis; E66.9 Obesity, unspecified; Z68.25 Body mass index [BMI] 25.0-25.9, adult | CPT/HCPCS: 87880-QW; 99283 ==